=== PATIENT | male | born 1945 | race Caucasian/White ===

== ENCOUNTER 2018-05-07 11:12 | Observation (INO) | payer MEDICARE, OTHER ==
--- NOTE | 2018-05-07 11:33 | ERPHSYRPT ---
- History of Present Illness Time Seen by Provider: 05/07/18 11:31 Source: patient Physician History: mild to mod dizziness today, no loc, no injury, no fever, SP 220, mild headache , no emesis, no chest pain Allergies/Adverse Reactions: No Known Drug Allergies Allergy (Verified 05/07/18 11:26) Home Medications: ARIPiprazole [Aripiprazole] 05/07/18 [History] Alprazolam 1 mg [Xanax 1 mg] 05/07/18 [History] Amlodipine Besylate [Norvasc] 05/07/18 [History] Duloxetine HCl [Cymbalta] 05/07/18 [History] Metoprolol Tartrate 05/07/18 [History] Tamsulosin HCl 0.4 mg [Flomax 0.4 MG] 05/07/18 [History] Hx Tetanus, Diphtheria Vaccination/Date Given: No Hx Influenza Vaccination/Date Given: Yes Hx Pneumococcal Vaccination/Date Given: Yes - Review of Systems Constitutional: No Fever Eyes: No Vision Changes Ears, Nose, & Throat: No Mouth Pain Respiratory: No Dyspnea Cardiac: No Chest Pain Abdominal/Gastrointestinal: No Abdominal Pain, No Vomiting Genitourinary Symptoms: No Dysuria Musculoskeletal: No Back Pain, No Neck Pain, No Fall Skin: No Rash Neurological: Dizziness, No Focal Weakness - Past Medical History Pertinent Past Medical History: Yes Neurological History: No Pertinent History ENT History: No Pertinent History Cardiac History: No Pertinent History, Hypertension Respiratory History: Sleep Apnea Endocrine Medical History: No Pertinent History Musculoskeletal History: Arthritis GI Medical History: Ulcer History: No Pertinent History Psycho-Social History: Anxiety, Depression Male Reproductive Disorders: Prostate Problems - Past Surgical History Past Surgical History: Yes Neuro Surgical History: No Pertinent History Cardiac: Cardiac Catheterization, Other Respiratory: No Pertinent History Gastrointestinal: Hernia Repair Genitourinary: No Pertinent History Musculoskeletal: No Pertinent History Male Surgical History: No Pertinent History Other Surgical History: pt states "my heart beats slow,i have an enlarged upper aorta and thickened septum" - Social History Smoking Status: Never smoker How long have you smoked: 40+ years Exposure to second hand smoke: No Drug Use: none Patient Lives Alone: No - Nursing Vital Signs Nursing Vital Signs: Initial Vital Signs Pulse Rate 59 L 05/07/18 12:43 Respiratory Rate 16 05/07/18 12:43 Blood Pressure 138/89 05/07/18 12:43 O2 Sat by Pulse Oximetry 98 05/07/18 12:43 Pain Scale Pain Intensity 0 - Physical Exam General Appearance: no apparent distress Eye Exam: PERRL/EOMI Ears, Nose, Throat Exam: pharynx normal Neck Exam: normal inspection Respiratory Exam: normal breath sounds Cardiovascular Exam: regular rate/rhythm Gastrointestinal/Abdomen Exam: soft, No tenderness Extremity Exam: normal inspection Neurologic Exam: alert, oriented x 3, case therapist II-XII nml as tested Skin Exam: warm, dry - Course Nursing assessment & vital signs reviewed: Yes EKG Interpreted by Me: Other (nsr 56, new LBBB since 02/2016, +pvc's) - Radiology Exams Chest X-ray Interpretation: Discussed w/ radiologist, Other (left atelec or infil) - CT Exams Head CT Interpretation: Negative, Discussed w/radiologist Ordered Tests: Active Orders 24 hr Category Date Time Status EKG-ER Only STAT Care 05/07/18 11:29 Active IV Insertion STAT Care 05/07/18 11:29 Active Orthostatic Vital Signs STAT Care 05/07/18 12:37 Active CHEST 1 VIEW (PORTABLE) Stat Exams 05/07/18 11:30 Completed HEAD WITHOUT CONTRAST [CT] Stat Exams 05/07/18 11:30 Completed CBC W DIFF Stat Lab 05/07/18 11:52 Completed CMP Stat Lab 05/07/18 11:52 Completed TROPONIN Q3H Lab 05/07/18 11:52 Completed TROPONIN Q3H Lab 05/07/18 14:30 Ordered TROPONIN Q3H Lab 05/07/18 17:30 Ordered TROPONIN Q3H Lab 05/07/18 20:30 Ordered TROPONIN Q3H Lab 05/07/18 23:30 Ordered Transfer Order Routine Transfer 05/07/18 Ordered Medication Summary Generic Name Dose Route Start Last Admin Trade Name Freq PRN Reason Stop Dose Admin Levofloxacin/Dextrose 500 mg in 100 mls @ 100 mls/hr 05/07/18 12:37 Levofloxacin 500mg/100ml D5w IV 05/07/18 13:36 STAT STA Discontinued Medications Generic Name Dose Route Start Last Admin Trade Name Freq PRN Reason Stop Dose Admin Aspirin 324 mg 05/07/18 13:04 Baby Aspirin 81 Mg Chew PO 05/07/18 13:05 STAT ONE Levofloxacin/Dextrose Confirm 05/07/18 12:48 Levofloxacin 500mg/100ml D5w Administered 05/07/18 12:49 Dose 500 mg in 100 mls @ ud IV .STK-MED ONE Lab/Rad Data: Laboratory Result Diagrams 05/07/18 11:52 05/07/18 11:52 Laboratory Results 05/07/18 05/07/18 05/07/18 Range/Units 11:52 11:52 11:52 WBC 7.4 (4.0-10.5) K/mm3 RBC 4.56 (4.1-5.6) M/mm3 Hgb 14.5 (12.5-18.0) gm/dl Hct 43.3 (42-50) % MCV 95.0 (78-100) fl MCH 31.8 (26-32) pg MCHC 33.5 (32-36) g/dl RDW 13.5 (11.5-14.0) % Plt Count 154 (150-450) K/mm3 MPV 10.5 H (6-9.5) fl Gran % 72.2 H (36.0-66.0) % Eos # (Auto) 0.31 (0-0.5) Absolute Lymphs (auto) 1.26 (1.0-4.6) Absolute Monos (auto) 0.44 (0.0-1.3) Lymphocytes % 17.1 L (24.0-44.0) % Monocytes % 6.0 (0.0-12.0) % Eosinophils % 4.2 (0.00-5.0) % Basophils % 0.5 (0.0-0.4) % Absolute Granulocytes 5.34 (1.4-6.9) Basophils # 0.04 (0-0.4) Sodium 140 (137-145) mmol/L Potassium 3.6 (3.5-5.1) mmol/L Chloride 103 (98-107) mmol/L Carbon Dioxide 28 (22-30) mmol/L Anion Gap 12.9 (5-15) MEQ/L BUN 20 (9-20) mg/dL Creatinine 0.96 (0.66-1.25) mg/dL Estimated GFR > 60.0 ML/MIN Glucose 118 H (74-106) mg/dL Calcium 9.1 (8.4-10.2) mg/dL Total Bilirubin 0.50 (0.2-1.3) mg/dL AST 28 (17-59) U/L ALT 20 (0-50) U/L Alkaline Phosphatase 68 (38-126) U/L Troponin I 0.023 (0.000-0.034) ng/mL Serum Total Protein 7.3 (6.3-8.2) g/dL Albumin 4.1 (3.5-5.0) g/dL - Progress Progress: improved Discussed with : Arsenio Will see patient in: hospital (observation) Counseled pt/family regarding: lab results, diagnosis, rad results - Departure Time of Disposition: 13:10 Departure Disposition: Observation Clinical Impression: Pneumonia Qualifiers: Pneumonia type: due to unspecified organism Laterality: left Lung location: lower lobe of lung Qualified Code(s): J18.1 - Lobar pneumonia, unspecified organism Condition: Stable Critical Care Time: No Referrals: CESAR KRAUSE MD [Primary Care Provider] -
[2018-05-07 12:03] LABS: BASOPHIL % 0.5 % (0.0-0.4); Basophil (Absolute #) 0.04 (0-0.4); Eosinophil % 4.2 % (0.00-5.0); Eosinophil (Absolute #) 0.31 (0-0.5); Granulocyte Absolute (ANC) 5.34 (1.4-6.9); Granulocytes % 72.2 % (36.0-66.0); Hematocrit 43.3 % (42-50); Hemoglobin 14.5 gm/dl (12.5-18.0); Lymphocyte (Absolute #) 1.26 (1.0-4.6); Lymphocytes % 17.1 % (24.0-44.0); Mean Corpuscular Hemoglobin 31.8 pg (26-32); Mean Corpuscular Hgb Concent. 33.5 g/dl (32-36); Mean Platelet Volume 10.5 fl (6-9.5); Monocyte (Absolute #) 0.44 (0.0-1.3); Platelet Count 154 K/mm3 (150-450); Red Blood Count 4.56 M/mm3 (4.1-5.6); Red Cell Distribution Width 13.5 % (11.5-14.0); White Blood Count 7.4 K/mm3 (4.0-10.5)
--- NOTE | 2018-05-07 12:05 | XRAY ---
Indication: Dizziness. Comparison: None Portable chest demonstrates left hemidiaphragm elevation with adjacent infiltrate/atelectasis. Remaining right lung and heart unremarkable. Bony thorax intact with sternotomy wires.
[2018-05-07 12:11] LABS: ALBUMIN 4.1 g/dL (3.5-5.0); ALKALINE PHOSPHATASE 68 U/L (38-126); ANION GAP 12.9 MEQ/L (5-15); BLOOD UREA NITROGEN 20 mg/dL (9-20); CHLORIDE 103 mmol/L (98-107); Calcium 9.1 mg/dL (8.4-10.2); Carbon Dioxide 28 mmol/L (22-30); Creatinine 1 0.96 mg/dL (0.66-1.25); Glucose 118 mg/dL (74-106); Potassium 3.6 mmol/L (3.5-5.1); SGOT/AST 28 U/L (17-59); SGPT/ALT 20 U/L (0-50); SODIUM 140 mmol/L (137-145); Total Protein 7.3 g/dL (6.3-8.2)
--- NOTE | 2018-05-07 12:21 | XRAY ---
Indication: Headache and dizziness. Elevated blood pressure. Multiple contiguous axial images obtained through the head without contrast. Comparison: None Age-appropriate global atrophy and minimal periventricular degenerative micro-ischemia bilaterally. No acute intracranial hemorrhage, abnormal extra-axial fluid collection, or mass effect. Fourth ventricle is midline without hydrocephalus. Bony calvarium intact. Moderate mucosal thickening of both ethmoid sinuses, complete opacification of the right frontal sinus, and tiny right maxillary/right sphenoid sinus fluid leveling. Mastoid air cells are clear. Impression: 1. Nonacute senile brain. 2. Incidental pansinusitis. CTDI 68.65
[2018-05-07] MEDS ORDERED: Levofloxacin 500MG/100ML D5W 500 MG/100 ML BAG IV STA (12:37)
[2018-05-07] MEDS ORDERED: Levofloxacin 500MG/100ML D5W 500 MG/100 ML BAG IV ONE (12:48)
[2018-05-07] MEDS ORDERED: BABY ASPIRIN 81 MG CHEW PO ONE (13:04)
[2018-05-07] MEDS ORDERED: BABY ASPIRIN 81 MG CHEW ONE (13:19)
[2018-05-07] MEDS ORDERED: TYLENOL 325 MG PO PRN (13:53)
[2018-05-07] MEDS ORDERED: Sodium Chloride 0.9% 10 ML FLUSH Syringe IV PRN (14:45)
--- NOTE | 2018-05-07 16:48 | PCM.HP ---
History of Present Illness - Chief Complaint Chief Complaint: dizziness History of Present Illness: is a 72 year old male who presented to the ER by ambulance, he was standing in a garage and had sudden onset of dizziness which he describes as a lightheadedness then had a syncopal episode which was witness. He recovered quickly and was coherent and able to answer questions when the ambulance crew arrived. He felt slightly nauseated, no chest pain, no shortness of breath were associated with this incident. He has had aortic valve replacement surgery previously and sees Dr Suarez [facility] in his [facility] satellite clinic. - Review of Systems Constitutional: No Fever, No Chills Respiratory: No Cough, No Short Of Breath Cardiac: Syncope, No Chest Pain, No Palpitations Abdominal/Gastrointestinal: No Abdominal Pain, No Nausea, No Vomiting, No Diarrhea Genitourinary Symptoms: No Dysuria Neurological: Dizziness, No Focal Weakness, No Gait Changes, No Seizure All Other Systems: Reviewed and Negative Medications & Allergies Home Medications: Home Medication List Alprazolam 1 mg [Xanax 1 mg] 1 mg PO TIDPRN PRN 05/07/18 [History Confirmed 05/07/18] Amlodipine Besylate [Norvasc] 5 mg PO DAILY 05/07/18 [History Confirmed 05/07/18 ] Aripiprazole [Abilify] 5 mg PO HS 05/07/18 [History Confirmed 05/07/18] Duloxetine HCl [Cymbalta] 60 mg PO DAILY 05/07/18 [History Confirmed 05/07/18] Metoprolol Tartrate 25 mg PO BID 05/07/18 [History Confirmed 05/07/18] Tamsulosin HCl 0.4 mg [Flomax 0.4 MG] 0.4 mg PO DAILY 05/07/18 [History Confirmed 05/07/18] Valsartan/Hydrochlorothiazide [Valsartan-Hctz 320-12.5 mg Tab] 1 each PO DAILY 05/07/18 [History Confirmed 05/07/18] Allergies/Adverse Reactions: Allergies Allergy/AdvReac Type Severity Reaction Status Date / Time No Known Drug Allergies Allergy Verified 05/07/18 11:26 - Past Medical History Past Medical History: Yes Neurological History: No Pertinent History ENT History: No Pertinent History Cardiac History: Aneurysm, Hypertension, Other Respiratory History: Sleep Apnea Endocrine Medical History: No Pertinent History Musculoskelatal History: Arthritis GI Medical History: Ulcer History: No Pertinent History Pyscho-Social History: Anxiety, Depression Male Reproductive Disorders: Prostate Problems Comment: AVR, MVR, Aortic Anuerysm - Past Surgical History Past Surgical History: Yes Neuro Surgical History: No Pertinent History Cardiac History: Cardiac Catheterization, Valve Replacement, Other Respiratory Surgery: No Pertinent History GI Surgical History: Hernia Repair Genitourinary Surgical Hx: No Pertinent History Musculskeletal Surgical Hx: No Pertinent History Male Surgical History: No Pertinent History Other Surgical History: pt states "my heart beats slow,i have an enlarged upper aorta and thickened septum" - Social History Smoking Status: Never smoker How long have you smoked: 40+ years Exposure to second hand smoke: No Alcohol: Occasionally Drug Use: none - Physical Exam Vital Signs: Vital Signs - 24 hr Temp Pulse Resp BP Pulse Ox 05/07/18 16:00 98.1 F 65 18 146/88 95 05/07/18 14:21 98.2 F 61 18 178/95 99 05/07/18 13:53 98.2 F 61 18 178/95 99 05/07/18 12:50 60 18 153/88 05/07/18 12:43 59 L 16 138/89 98 General Appearance: no apparent distress, alert Neurologic Exam: alert, oriented x 3, cooperative, normal mood/affect, nml cerebellar function, nml station & gait, sensation nml, No motor deficits Eye Exam: PERRL/EOMI, eyes nml inspection Respiratory Exam: normal breath sounds, lungs clear, No respiratory distress Cardiovascular Exam: murmur Gastrointestinal/Abdomen Exam: soft, normal bowel sounds, No tenderness, No mass Extremity Exam: normal inspection, normal range of motion, pelvis stable Skin Exam: normal color, warm, dry, No rash Results - Labs Lab/Micro Results: Lab Results-Last 24 Hours 05/07/18 05/07/18 05/07/18 Range/Units 11:52 11:52 11:52 WBC 7.4 (4.0-10.5) K/mm3 RBC 4.56 (4.1-5.6) M/mm3 Hgb 14.5 (12.5-18.0) gm/dl Hct 43.3 (42-50) % MCV 95.0 (78-100) fl MCH 31.8 (26-32) pg MCHC 33.5 (32-36) g/dl RDW 13.5 (11.5-14.0) % Plt Count 154 (150-450) K/mm3 MPV 10.5 H (6-9.5) fl Gran % 72.2 H (36.0-66.0) % Eos # (Auto) 0.31 (0-0.5) Absolute Lymphs (auto) 1.26 (1.0-4.6) Absolute Monos (auto) 0.44 (0.0-1.3) Lymphocytes % 17.1 L (24.0-44.0) % Monocytes % 6.0 (0.0-12.0) % Eosinophils % 4.2 (0.00-5.0) % Basophils % 0.5 (0.0-0.4) % Absolute Granulocytes 5.34 (1.4-6.9) Basophils # 0.04 (0-0.4) Sodium 140 (137-145) mmol/L Potassium 3.6 (3.5-5.1) mmol/L Chloride 103 (98-107) mmol/L Carbon Dioxide 28 (22-30) mmol/L Anion Gap 12.9 (5-15) MEQ/L BUN 20 (9-20) mg/dL Creatinine 0.96 (0.66-1.25) mg/dL Estimated GFR > 60.0 ML/MIN Glucose 118 H (74-106) mg/dL Calcium 9.1 (8.4-10.2) mg/dL Total Bilirubin 0.50 (0.2-1.3) mg/dL AST 28 (17-59) U/L ALT 20 (0-50) U/L Alkaline Phosphatase 68 (38-126) U/L Troponin I 0.023 (0.000-0.034) ng/mL Serum Total Protein 7.3 (6.3-8.2) g/dL Albumin 4.1 (3.5-5.0) g/dL 05/07/18 Range/Units 14:46 WBC (4.0-10.5) K/mm3 RBC (4.1-5.6) M/mm3 Hgb (12.5-18.0) gm/dl Hct (42-50) % MCV (78-100) fl MCH (26-32) pg MCHC (32-36) g/dl RDW (11.5-14.0) % Plt Count (150-450) K/mm3 MPV (6-9.5) fl Gran % (36.0-66.0) % Eos # (Auto) (0-0.5) Absolute Lymphs (auto) (1.0-4.6) Absolute Monos (auto) (0.0-1.3) Lymphocytes % (24.0-44.0) % Monocytes % (0.0-12.0) % Eosinophils % (0.00-5.0) % Basophils % (0.0-0.4) % Absolute Granulocytes (1.4-6.9) Basophils # (0-0.4) Sodium (137-145) mmol/L Potassium (3.5-5.1) mmol/L Chloride (98-107) mmol/L Carbon Dioxide (22-30) mmol/L Anion Gap (5-15) MEQ/L BUN (9-20) mg/dL Creatinine (0.66-1.25) mg/dL Estimated GFR ML/MIN Glucose (74-106) mg/dL Calcium (8.4-10.2) mg/dL Total Bilirubin (0.2-1.3) mg/dL AST (17-59) U/L ALT (0-50) U/L Alkaline Phosphatase (38-126) U/L Troponin I 0.030 (0.000-0.034) ng/mL Serum Total Protein (6.3-8.2) g/dL Albumin (3.5-5.0) g/dL - Radiology Impressions Radiology Exams & Impressions: Radiology Procedures Category Date Time Status CHEST 1 VIEW (PORTABLE) Stat Exams 05/07/18 11:30 Completed HEAD WITHOUT CONTRAST [CT] Stat Exams 05/07/18 11:30 Completed Assessment/Plan (1) Syncope Current Visit: Yes Status: Acute Assessment & Plan: will get echo and carotid dopplers, continue to rule out ME with serial cardiac enzymes. EKG shows left bundle branch block with frequent PVC's, want to rule out arrythmia Code(s): R55 - SYNCOPE AND COLLAPSE
[2018-05-07] MEDS: ENOXAPARIN SODIUM SQ SCH (17:44)
[2018-05-07] MEDS: Lopressor 25MG Tab PO SCH (21:06)
[2018-05-07] MEDS: Abilify 10 MG PO SCH (21:06)
[2018-05-07] MEDS: Sodium Chloride 0.9% 10 ML FLUSH Syringe IV SCH (21:08)
[2018-05-07] MEDS: XANAX 1 MG PO PRN (21:11)
[2018-05-07] MEDS ORDERED: NON-FORMULARY ITEM (Aripiprazole [Abilify] 5 MG) PO SCH (22:00)
[2018-05-08 05:44] LABS: BASOPHIL % 0.5 % (0.0-0.4); Basophil (Absolute #) 0.04 (0-0.4); Eosinophil % 4.3 % (0.00-5.0); Eosinophil (Absolute #) 0.33 (0-0.5); Granulocyte Absolute (ANC) 5.04 (1.4-6.9); Granulocytes % 66.2 % (36.0-66.0); Hemoglobin 13.9 gm/dl (12.5-18.0); Lymphocyte (Absolute #) 1.66 (1.0-4.6); Lymphocytes % 21.8 % (24.0-44.0); Mean Cell Volume 94.8 fl (78-100); Mean Corpuscular Hemoglobin 31.4 pg (26-32); Mean Corpuscular Hgb Concent. 33.1 g/dl (32-36); Mean Platelet Volume 10.5 fl (6-9.5); Monocyte (Absolute #) 0.55 (0.0-1.3); Monocytes % 7.2 % (0.0-12.0); Platelet Count 161 K/mm3 (150-450); Red Blood Count 4.43 M/mm3 (4.1-5.6); Red Cell Distribution Width 13.5 % (11.5-14.0); White Blood Count 7.6 K/mm3 (4.0-10.5)
[2018-05-08 06:09] LABS: ALBUMIN 3.6 g/dL (3.5-5.0); ALKALINE PHOSPHATASE 58 U/L (38-126); ANION GAP 11.2 MEQ/L (5-15); BLOOD UREA NITROGEN 19 mg/dL (9-20); CHLORIDE 105 mmol/L (98-107); Calcium 8.8 mg/dL (8.4-10.2); Carbon Dioxide 27 mmol/L (22-30); Creatinine 1 0.98 mg/dL (0.66-1.25); Glucose 94 mg/dL (74-106); Potassium 3.5 mmol/L (3.5-5.1); SGOT/AST 30 U/L (17-59); SGPT/ALT 18 U/L (0-50); SODIUM 139 mmol/L (137-145); Total Protein 6.6 g/dL (6.3-8.2)
--- NOTE | 2018-05-08 08:44 | PCM.DS ---
Discharge Summary Date of Admission: 05/07/18 13:48 Admitting Physician: CESAR KRAUSE Primary Care Provider: CESAR KRAUSE Allergies Allergies No Known Drug Allergies Allergy (Verified 05/07/18 11:26) Hospital Summary - Hospital Course Hospital Course: [address] Krause and Dr. Suarez with PMHx aortic valve replacement and mitral valve repair was admitted for syncopal episode. EKG with some changes felt to be related to the recent valve replacement. He was found to have some LLL infiltrate but denies cough, aside from once every other day. No fever. He feels "100% better" since being here. Out of bed without incident. Slept well last night. Currently getting echocardiogram and carotid dopplers. Will let him finish testing. Will increase amlodipine from 5mg po daily to 10mg daily due to elevated BPs. Labs are unremarkable today. On admission, he had 3 negative troponins, than #4 and #5 were slightly elevated. Will repeat EKG and CXR and discuss with his sales development director then likely will send pt home. - Vitals & Intake/Output Vital Signs: Vital Signs Temperature 97.6 F 05/08/18 08:00 Pulse Rate 51 L 05/08/18 08:00 Respiratory Rate 20 05/08/18 08:00 Blood Pressure 159/85 05/08/18 08:00 O2 Sat by Pulse Oximetry 96 05/08/18 08:00 Intake & Output: Intake & Output 05/05/18 05/06/18 05/07/18 05/08/18 11:59 11:59 11:59 11:59 Intake Total 380 Output Total 800 Balance -420 Weight 90.718 kg 102.1 kg - Lab Result Diagrams: 05/08/18 05:20 05/08/18 05:20 Lab Results-Last 24 Hrs: Lab Results-Last 24 Hours 05/07/18 05/07/18 05/07/18 Range/Units 11:52 11:52 11:52 WBC 7.4 (4.0-10.5) K/mm3 RBC 4.56 (4.1-5.6) M/mm3 Hgb 14.5 (12.5-18.0) gm/dl Hct 43.3 (42-50) % MCV 95.0 (78-100) fl MCH 31.8 (26-32) pg MCHC 33.5 (32-36) g/dl RDW 13.5 (11.5-14.0) % Plt Count 154 (150-450) K/mm3 MPV 10.5 H (6-9.5) fl Gran % 72.2 H (36.0-66.0) % Eos # (Auto) 0.31 (0-0.5) Absolute Lymphs (auto) 1.26 (1.0-4.6) Absolute Monos (auto) 0.44 (0.0-1.3) Lymphocytes % 17.1 L (24.0-44.0) % Monocytes % 6.0 (0.0-12.0) % Eosinophils % 4.2 (0.00-5.0) % Basophils % 0.5 (0.0-0.4) % Absolute Granulocytes 5.34 (1.4-6.9) Basophils # 0.04 (0-0.4) Sodium 140 (137-145) mmol/L Potassium 3.6 (3.5-5.1) mmol/L Chloride 103 (98-107) mmol/L Carbon Dioxide 28 (22-30) mmol/L Anion Gap 12.9 (5-15) MEQ/L BUN 20 (9-20) mg/dL Creatinine 0.96 (0.66-1.25) mg/dL Estimated GFR > 60.0 ML/MIN Glucose 118 H (74-106) mg/dL Calcium 9.1 (8.4-10.2) mg/dL Magnesium (1.6-2.3) mg/dL Total Bilirubin 0.50 (0.2-1.3) mg/dL AST 28 (17-59) U/L ALT 20 (0-50) U/L Alkaline Phosphatase 68 (38-126) U/L Troponin I 0.023 (0.000-0.034) ng/mL Serum Total Protein 7.3 (6.3-8.2) g/dL Albumin 4.1 (3.5-5.0) g/dL 05/07/18 05/07/18 05/07/18 Range/Units 14:46 17:42 20:40 WBC (4.0-10.5) K/mm3 RBC (4.1-5.6) M/mm3 Hgb (12.5-18.0) gm/dl Hct (42-50) % MCV (78-100) fl MCH (26-32) pg MCHC (32-36) g/dl RDW (11.5-14.0) % Plt Count (150-450) K/mm3 MPV (6-9.5) fl Gran % (36.0-66.0) % Eos # (Auto) (0-0.5) Absolute Lymphs (auto) (1.0-4.6) Absolute Monos (auto) (0.0-1.3) Lymphocytes % (24.0-44.0) % Monocytes % (0.0-12.0) % Eosinophils % (0.00-5.0) % Basophils % (0.0-0.4) % Absolute Granulocytes (1.4-6.9) Basophils # (0-0.4) Sodium (137-145) mmol/L Potassium (3.5-5.1) mmol/L Chloride (98-107) mmol/L Carbon Dioxide (22-30) mmol/L Anion Gap (5-15) MEQ/L BUN (9-20) mg/dL Creatinine (0.66-1.25) mg/dL Estimated GFR ML/MIN Glucose (74-106) mg/dL Calcium (8.4-10.2) mg/dL Magnesium (1.6-2.3) mg/dL Total Bilirubin (0.2-1.3) mg/dL AST (17-59) U/L ALT (0-50) U/L Alkaline Phosphatase (38-126) U/L Troponin I 0.030 0.032 0.048 H* (0.000-0.034) ng/mL Serum Total Protein (6.3-8.2) g/dL Albumin (3.5-5.0) g/dL 05/07/18 05/08/18 05/08/18 Range/Units 23:30 05:20 05:20 WBC 7.6 (4.0-10.5) K/mm3 RBC 4.43 (4.1-5.6) M/mm3 Hgb 13.9 (12.5-18.0) gm/dl Hct 42.0 (42-50) % MCV 94.8 (78-100) fl MCH 31.4 (26-32) pg MCHC 33.1 (32-36) g/dl RDW 13.5 (11.5-14.0) % Plt Count 161 (150-450) K/mm3 MPV 10.5 H (6-9.5) fl Gran % 66.2 H (36.0-66.0) % Eos # (Auto) 0.33 (0-0.5) Absolute Lymphs (auto) 1.66 (1.0-4.6) Absolute Monos (auto) 0.55 (0.0-1.3) Lymphocytes % 21.8 L (24.0-44.0) % Monocytes % 7.2 (0.0-12.0) % Eosinophils % 4.3 (0.00-5.0) % Basophils % 0.5 (0.0-0.4) % Absolute Granulocytes 5.04 (1.4-6.9) Basophils # 0.04 (0-0.4) Sodium 139 (137-145) mmol/L Potassium 3.5 (3.5-5.1) mmol/L Chloride 105 (98-107) mmol/L Carbon Dioxide 27 (22-30) mmol/L Anion Gap 11.2 (5-15) MEQ/L BUN 19 (9-20) mg/dL Creatinine 0.98 (0.66-1.25) mg/dL Estimated GFR > 60.0 ML/MIN Glucose 94 (74-106) mg/dL Calcium 8.8 (8.4-10.2) mg/dL Magnesium 2.1 (1.6-2.3) mg/dL Total Bilirubin 0.60 (0.2-1.3) mg/dL AST 30 (17-59) U/L ALT 18 (0-50) U/L Alkaline Phosphatase 58 (38-126) U/L Troponin I 0.076 H* (0.000-0.034) ng/mL Serum Total Protein 6.6 (6.3-8.2) g/dL Albumin 3.6 (3.5-5.0) g/dL - Radiology Exams Ordered Rad Exams-Entire Visit: Radiology Procedures Category Date Time Status CAROTID BILATERAL [US] Routine Exams 05/08/18 Ordered CHEST 1 VIEW (PORTABLE) Stat Exams 08/27/18 11:30 Completed ECHO W/2D AND DOPPLER [US] Routine Exams 05/08/18 Ordered HEAD WITHOUT CONTRAST [CT] Stat Exams 05/07/18 11:30 Completed - Procedures and Test Procedures and Tests throughout Hospitalization: Therapy Orders & Screens 05/08/18 08:38 EKG ROUTINE Comment: Diagnosis: dizziness Discharge Exam General Appearance: no apparent distress, alert Neurologic Exam: oriented x 3, cooperative Skin Exam: normal color, warm, dry, No rash Eye Exam: eyes nml inspection Ears, Nose, Throat Exam: moist mucous membranes Neck Exam: normal inspection Respiratory Exam: normal breath sounds (good air exchange), crackles/rales (LLL) , No rhonchi, No wheezing Cardiovascular Exam: bradycardia (reg rhythm), No murmur Gastrointestinal/Abdomen Exam: normal bowel sounds Extremity Exam: No pedal edema, No swelling Back Exam: normal inspection, No rash Final Diagnosis/Problem List - Final Discharge Diagnosis/Problem (1) Syncope Current Visit: Yes Status: Acute (2) Pneumonia Current Visit: Yes Status: Acute Assessment & Plan: He has infiltrate on CXR and can hear fluid in the lungs but clinically has no WBC count and no sx of pneumonia. Will go ahead and cover with antibiotics. Repeat CXR. (3) H/O mitral valve repair Current Visit: Yes Status: Chronic (4) Aortic valve replaced Current Visit: Yes Status: Chronic (5) Essential hypertension Current Visit: No Status: Chronic Assessment & Plan: increase amlodipine from 5mg po daily to 10mg po daily. - Discharge Disposition: Home, Self-Care Condition: Stable Prescriptions: No Action Tamsulosin HCl 0.4 mg [Flomax 0.4 MG] 0.4 mg PO DAILY Metoprolol Tartrate 25 mg PO BID Duloxetine HCl [Cymbalta] 60 mg PO DAILY Amlodipine Besylate [Norvasc] 5 mg PO DAILY Alprazolam 1 mg [Xanax 1 mg] 1 mg PO TIDPRN PRN PRN Reason: Anxiety Aripiprazole [Abilify] 5 mg PO HS Valsartan/Hydrochlorothiazide [Valsartan-Hctz 320-12.5 mg Tab] 1 each PO DAILY Follow up with: CESAR KRAUSE MD [Primary Care Provider] - 1 Week
[2018-05-08] MEDS: Lopressor 25MG Tab PO SCH ×2 (09:51→22:08)
[2018-05-08] MEDS ORDERED: NORVASC 5 MG PO SCH ×2 (10:00)
[2018-05-08] MEDS ORDERED: HYDROCHLOROTHIAZIDE PO SCH ×2 (10:00)
[2018-05-08] MEDS ORDERED: DIOVAN 80 MG PO SCH (10:00)
[2018-05-08] MEDS ORDERED: Levofloxacin 500MG/100ML D5W 500 MG/100 ML BAG IV SCH (10:00)
[2018-05-08] MEDS ORDERED: hydroDIURIL 25 MG PO SCH (10:00)
[2018-05-08] MEDS ORDERED: [UNRECOGNIZED DRUG - OTHER] PO SCH ×2 (10:00)
[2018-05-08] MEDS ORDERED: VALSARTAN PO SCH ×2 (10:00)
[2018-05-08] MEDS ORDERED: Flomax 0.4 MG PO SCH (10:00)
[2018-05-08] MEDS ORDERED: Cymbalta 30 MG Capsule PO SCH (10:00)
--- NOTE | 2018-05-08 10:34 | XRAY ---
Indication: Pneumonia. Comparison: One day earlier. PA/lateral chest unchanged again demonstrating left hemidiaphragm elevation with adjacent infiltrate/atelectasis and previous cardiothoracic surgery. Remaining heart and lungs unremarkable. No new/acute findings.
--- NOTE | 2018-05-08 10:40 | XRAY ---
Indication: Syncope. Two-dimensional sonogram and color Doppler imaging of the carotid arteries of the neck performed. Comparison: None Examination of the right carotid circulation demonstrates mild eccentric heterogeneous plaquing at the level of bulb extending into the origin of the internal carotid artery. Tortuous internal carotid artery. PSV of the CCA is 96 cm/s. PSV of the ICA is 88 cm/s. ICA/CCA ratio is 0.9. Normal antegrade vertebral artery flow. Examination of the left carotid circulation demonstrates wide patent common carotid artery, bulb, and internal/external carotid arteries. Tortuous internal carotid artery. PSV of the CCA is 95 cm/s. PSV of the ICA is 57 cm/s. ICA/CCA ratio is 0.6. Normal antegrade vertebral artery flow. Impression: Mild plaquing in the right carotid circulation as detailed and bilateral tortuous internal carotid arteries. Velocity measurements and ratios are negative for hemodynamically significant flow-limiting stenosis.
[2018-05-08] MEDS: ENOXAPARIN SODIUM SQ SCH (19:00)
[2018-05-08] MEDS: Sodium Chloride 0.9% 10 ML FLUSH Syringe IV SCH (20:38)
[2018-05-08] MEDS ORDERED: Sodium Chloride 0.9% 1000 ML 1,000 ML IV SCH (20:45)
[2018-05-08] MEDS: Abilify 10 MG PO SCH (22:08)
[2018-05-08] MEDS: XANAX 1 MG PO PRN (22:10)
[2018-05-09 07:13] VITALS: BP 169/98; PULSE 60; O2SAT 95
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
--- NOTE | 2018-05-09 08:59 | XRAY ---
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 Conventional CTA chest performed using 80 cc Isovue 370 contrast. Two-dimensional sagittal and coronal reformatted images obtained. Additional 3-dimensional reformatted images obtained using a separate workstation. Comparison: CT chest with contrast exam August 02, 2010. Thoracic aorta is normal in course and caliber without aneurysm/dissection. There has been interval mitral valve replacement surgery. Heart is not enlarged. No pericardial effusion/thickening. Again tiny right hilar calcified nodes. No pathologic mediastinal/hilar/axillary lymphadenopathy. There is now left hemidiaphragm elevation with adjacent left lower lobe compressive atelectasis. Stable tiny peripheral calcified granuloma in the right middle lobe and new tiny calcific granulomas in the left posterior gutter. New 5 mm noncalcified nodularity seen in the right lower lobe (image 36, series 4). No infiltrate or effusion. Bony thorax intact with mild degenerative changes throughout the spine and new sternotomy wires. Limited upper abdomen again demonstrates small hepatic and bilateral renal cysts. Left upper renal pole demonstrates new 2 cm exophytic mass, not simple cyst in appearance. Impression: 1. Negative CTA chest. 2. Interval mitral valve replacement surgery. No Complications. 3. New left hemidiaphragm elevation with adjacent atelectasis. 4. New right lower lobe noncalcified micronodule possibly granulomatous as there is evidence for old granulomatous disease elsewhere. Consider follow-up per Fleischner guidelines. 5. New 2 cm left upper renal pole exophytic mass. Renal sonogram could help differentiate solid mass versus complex proteinaceous/viscus cyst. CT DI 23.68
--- NOTE | 2018-05-10 08:40 | ECHO ---
DATE OF PROCEDURE: 05/08/2018 CLINICAL INFORMATION: Syncope. The M-mode 2D, and Doppler echocardiogram including color flow Doppler shows a mild decrease in left ventricular contractibility with an ejection fraction between 45 and 50%. There is mitral valve calcification associated with mild mitral regurgitation present. The left ventricle is moderately dilated at 6.6 cm. There is no apical thrombus present. The septal wall thickness is at 1.3 cm. The left ventricular posterior wall thickness is increased at 1.4 cm. The mitral valve E to A inflow velocity ratio is decreased at 0.9 consistent with impaired left ventricular relaxation. The right ventricle is grossly normal in size and function. The left atrium is at the upper limits of normal being 4.0 cm. The interatrial septum is normal. The right atrium is normal. The right atrium is normal. There is mitral valvular calcification associated with mild mitral regurgitation. The aortic valve is not well visualized. There is mild tricuspid regurgitation. The right ventricular systolic pressure is at the upper limits of normal being 29 mm of Mercury. The pulmonic valve is not well visualized. The aortic root is dilated 4.3 cm. There is no pericardial effusion present. IMPRESSION: 1) MILD MITRAL REGURGITATION. 2) MILD TRICUSPID REGURGITATION. 3) MILD PULMONIC REGURGITATION. 4) MILD DECREASE IN LEFT VENTRICULAR SYSTOLIC FUNCTION. 5) THERE IS EVIDENCE OF IMPAIRED LEFT VENTRICULAR RELAXATION. 6) THE LEFT VENTRICLE IS MODERATELY DILATED. 7) THERE IS MILD CONCENTRIC LEFT VENTRICULAR HYPERTROPHY.
== END 2018-05-09 09:10 | disposition home or self-care (01) ==
LOC: ED 11:12 → MED SURG 13:48
PROVIDERS: ADMIT Family Medicine; ATTEND Family Medicine
DX: R55 Syncope and collapse (principal); J18.9 Pneumonia, unspecified organism; I10 Essential (primary) hypertension; Z95.2 Presence of prosthetic heart valve; Z98.890 Other specified postprocedural states; G47.33 Obstructive sleep apnea (adult) (pediatric); M19.90 Unspecified osteoarthritis, unspecified site; F41.8 Other specified anxiety disorders; Z79.899 Other long term (current) drug therapy
CPT/HCPCS: 36000; 36415; 70450; 71045; 71046; 71275; 80053; 83735; 84484; 85025; 93005; 93268; 93306; 93880; 96365; 99285; J1650; J1956; A9270-GY; G0378

== ENCOUNTER 2018-10-05 17:14 | Emergency (ER) | payer MEDICARE, OTHER ==
[2018-10-05] MEDS ORDERED: SUBLIMAZE 100 MCG/2 ML IV ONE ×2 (17:21→18:54)
[2018-10-05] MEDS ORDERED: SUBLIMAZE 100 MCG/2 ML ONE ×2 (17:24→18:59)
[2018-10-05] MEDS ORDERED: Zofran 4 MG/2 ML VIAL ONE (17:24)
[2018-10-05] MEDS ORDERED: Sodium Chloride 0.9% 1000 ML 1,000 ML IV SCH (17:30)
[2018-10-05 17:40] LABS: BASOPHIL % 0.2 % (0.0-0.4); Basophil (Absolute #) 0.02 (0-0.4); Eosinophil (Absolute #) 0.34 (0-0.5); Granulocyte Absolute (ANC) 5.32 (1.4-6.9); Hematocrit 41.9 % (42-50); Hemoglobin 13.9 gm/dl (12.5-18.0); Lymphocyte (Absolute #) 2.28 (1.0-4.6); Lymphocytes % 26.5 % (24.0-44.0); Mean Corpuscular Hemoglobin 32.2 pg (26-32); Mean Corpuscular Hgb Concent. 33.2 g/dl (32-36); Monocyte (Absolute #) 0.63 (0.0-1.3); Monocytes % 7.3 % (0.0-12.0); Platelet Count 154 K/mm3 (150-450); Red Blood Count 4.32 M/mm3 (4.1-5.6); Red Cell Distribution Width 12.9 % (11.5-14.0); White Blood Count 8.6 K/mm3 (4.0-10.5)
[2018-10-05] MEDS ORDERED: Zofran 4 MG/2 ML VIAL IV ONE (17:41)
[2018-10-05 17:43] LABS: INR 1.01 (0.8-3.0); PROTIME 11.8 SECONDS (8.83-12.87)
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
[2018-10-05 17:48] LABS: ALBUMIN 4.4 g/dL (3.5-5.0); ALKALINE PHOSPHATASE 77 U/L (38-126); ANION GAP 12.7 MEQ/L (5-15); BLOOD UREA NITROGEN 26 mg/dL (9-20); CHLORIDE 102 mmol/L (98-107); Calcium 9.7 mg/dL (8.4-10.2); Carbon Dioxide 28 mmol/L (22-30); Creatinine 1 1.18 mg/dL (0.66-1.25); Glucose 95 mg/dL (74-106); MAGNESIUM 2.2 mg/dL (1.6-2.3); Potassium 3.5 mmol/L (3.5-5.1); SGOT/AST 32 U/L (17-59); SGPT/ALT 24 U/L (0-50); SODIUM 140 mmol/L (137-145); Total Protein 7.9 g/dL (6.3-8.2)
[2018-10-05] MEDS ORDERED: DUONEB 0.5-3 MG/3 ml Neb IH ONE ×2 (19:32→19:33)
[2018-10-05] MEDS ORDERED: Levofloxacin 500MG/100ML D5W 500 MG/100 ML BAG IV STA (19:32)
[2018-10-05] MEDS ORDERED: Levofloxacin 500MG/100ML D5W 500 MG/100 ML BAG IV ONE (19:36)
[2018-10-05] MEDS ORDERED: Sodium Chloride 0.9% 1000 ML 1,000 ML ONE (19:41)
[2018-10-05 20:04] VITALS: BP 138/83; PULSE 70; O2SAT 97
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
== END 2018-10-05 20:25 | disposition short-term general hospital (02) ==
LOC: ED 17:14
DX: S27.321A Contusion of lung, unilateral, initial encounter (principal); V47.0XXA Car driver injured in collision with fixed or stationary object in nontraffic accident, initial encounter; Z95.0 Presence of cardiac pacemaker; I10 Essential (primary) hypertension; I44.1 Atrioventricular block, second degree; I49.5 Sick sinus syndrome; I35.0 Nonrheumatic aortic (valve) stenosis; G47.30 Sleep apnea, unspecified; M19.90 Unspecified osteoarthritis, unspecified site; F32.9 Major depressive disorder, single episode, unspecified; R07.89 Other chest pain; Z79.899 Other long term (current) drug therapy
CPT/HCPCS: 70450; 71260; 72125; 80053; 83735; 83880; 84484; 85025; 85610; 87040; 93005; 93041; 94150; 94640; 96360; 96361; 96374; 96375; 96376; 99291; Q9967; 36415; 99285; J1956; J2405; J3010; A9270-GY

== ENCOUNTER 2019-06-03 12:25 | Emergency (ER) | payer MEDICARE, OTHER ==
--- NOTE | 2019-06-03 12:39 | ERPHSYRPT ---
- History of Present Illness Time Seen by Provider: 06/03/19 12:39 Source: patient Exam Limitations: no limitations Time of Onset/Last Time Seen Normal: Confusion, slurred speech for about 90 minutes Timing/Duration: resolved prior to arrival Severity: moderate Character of Deficits: impaired speech Deficits: no difficulties Baseline/Normal Cognition: alert oriented x 3 Current Cognition: alert oriented x 3 Baseline Gait: walks w/o assistance Associated Symptoms: denies symptoms (back to normal, all symptoms resolved) Allergies/Adverse Reactions: No Known Drug Allergies Allergy (Verified 06/03/19 12:49) Home Medications: Alprazolam 1 mg [Xanax 1 mg] 1 mg PO TIDPRN PRN 05/07/18 [History] Duloxetine HCl [Cymbalta] 60 mg PO DAILY 05/07/18 [History] Tamsulosin HCl 0.4 mg [Flomax 0.4 MG] 0.4 mg PO DAILY 05/07/18 [History] Valsartan/Hydrochlorothiazide [Valsartan-Hctz 320-12.5 mg Tab] 1 each PO DAILY 05/07/18 [History] Buspirone HCl 7.5 mg TID 06/03/19 [History] Dicyclomine HCl 20 mg [Bentyl 20 mg] 20 mg DAILY 06/03/19 [History] Omeprazole 40 mg DAILY 06/03/19 [History] Hx Tetanus, Diphtheria Vaccination/Date Given: No Hx Influenza Vaccination/Date Given: Yes Hx Pneumococcal Vaccination/Date Given: Yes - Review of Systems Constitutional: No Symptoms, No Fever, No Chills Eyes: No Symptoms Ears, Nose, & Throat: No Symptoms Respiratory: No Symptoms, No Cough, No Dyspnea Cardiac: No Symptoms, No Chest Pain, No Edema, No Syncope Abdominal/Gastrointestinal: No Symptoms, No Abdominal Pain, No Nausea, No Vomiting, No Diarrhea Genitourinary Symptoms: No Symptoms, No Dysuria Musculoskeletal: No Symptoms, No Back Pain, No Neck Pain Skin: No Symptoms, No Rash Neurological: Focal Weakness (not weak, but confused and slurred speech earlier) , Headache (mild), No Dizziness, No Sensory Changes Psychological: No Symptoms Endocrine: No Symptoms All Other Systems: Reviewed and Negative - Past Medical History Pertinent Past Medical History: Yes Neurological History: No Pertinent History, Other (possible brief TIA a few weeks ago, did not seek medical attention) ENT History: No Pertinent History Cardiac History: Aneurysm, Hypertension, Other (porcine AVR and mitral valve "repair" [address] - [facility]) Respiratory History: Sleep Apnea Endocrine Medical History: No Pertinent History Musculoskeletal History: Arthritis GI Medical History: Ulcer History: No Pertinent History Psycho-Social History: Anxiety, Depression Male Reproductive Disorders: Prostate Problems Other Medical History: AVR, MVR, Aortic Anuerysm - Past Surgical History Past Surgical History: Yes Neuro Surgical History: No Pertinent History Cardiac: Cardiac Catheterization, Valve Replacement, Other Respiratory: No Pertinent History Gastrointestinal: Hernia Repair Genitourinary: No Pertinent History Musculoskeletal: No Pertinent History Male Surgical History: No Pertinent History Other Surgical History: pt states "my heart beats slow,i have an enlarged upper aorta and thickened septum" - Social History Smoking Status: Former smoker How long have you smoked: 40+ years Exposure to second hand smoke: No Drug Use: none Patient Lives Alone: No - Nursing Vital Signs Nursing Vital Signs: Initial Vital Signs Temperature 98.4 F 06/03/19 12:37 Pulse Rate 71 06/03/19 12:37 Blood Pressure 123/89 06/03/19 12:37 O2 Sat by Pulse Oximetry 100 06/03/19 12:37 Pain Scale Pain Intensity 3 - Hope Coma Scale Best Eye Response (Hope): (4) open spontaneously Best Verbal Response (Hope): (5) oriented Best Motor Response (Cheo): (6) obeys commands Cheo Total: 15 - Physical Exam General Appearance: no apparent distress Eye Exam: bilateral eye: normal inspection, PERRL, EOMI Ears, Nose, Throat Exam: normal ENT inspection Neck Exam: normal inspection, non-tender, supple, full range of motion Respiratory: normal breath sounds, lungs clear, airway intact Cardiovascular: regular rate/rhythm, normal heart sounds Gastrointestinal: soft Rectal Exam: deferred Back Exam: normal inspection Extremity Exam: normal inspection, normal range of motion Mental Status: alert, oriented 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, 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 Exam: normal hearing, normal speech, PERRL Coordination/Gait: normal finger to nose, normal gait, normal cerebellar function, negative Romberg's sign Motor/Sensory: no motor deficit, no sensory deficit Skin Exam: normal color, warm, dry - Course Nursing assessment & vital signs reviewed: Yes EKG Interpreted by Me: RATE, Sinus Rhythm, NORMAL AXIS, NORMAL INTERVALS, NORMAL QRS, Non-specific ST Changes - CT Exams Head CT Interpretation: Tele-radiologist Report - Radiology Ultrasound Exam Carotid Ultrasound: discussed w/radiologist, Other (essentially normal for age) Ordered Tests: Active Orders 24 hr Category Date Time Status NPO (ED) STAT Care 06/03/19 13:04 Active CAROTID BILATERAL [US] Stat Exams 06/03/19 13:41 Completed HEAD WITHOUT CONTRAST [CT] Stat Exams 06/03/19 13:04 Completed CBC W DIFF Stat Lab 06/03/19 13:00 Completed CMP Stat Lab 06/03/19 13:00 Completed PROTIME WITH INR Stat Lab 06/03/19 13:00 Completed PTT Stat Lab 06/03/19 13:00 Completed UA W/RFX UR CULTURE Stat Lab 06/03/19 13:26 Completed Medication Summary Discontinued Medications Generic Name Dose Route Start Last Admin Trade Name Freq PRN Reason Stop Dose Admin Potassium Chloride 20 meq 06/03/19 14:34 06/03/19 14:46 Klor Con 10 Meq PO 06/03/19 14:35 20 meq STAT ONE Administration Potassium Chloride Confirm 06/03/19 14:45 Klor Con 10 Meq Administered 06/03/19 14:46 Dose 20 meq PO .STK-MED ONE Head CT normal for age. Sinus fluid likely from seasonal allergies. Carotid dopplers essentially normal for age. Lab/Rad Data: Laboratory Result Diagrams 06/03/19 13:00 06/03/19 13:00 Laboratory Results 06/03/19 06/03/19 06/03/19 Range/Units 13:26 13:00 13:00 WBC (4.0-10.5) K/mm3 RBC (4.1-5.6) M/mm3 Hgb (12.5-18.0) gm/dl Hct (42-50) % MCV (78-100) fl MCH (26-32) pg MCHC (32-36) g/dl RDW (11.5-14.0) % Plt Count (150-450) K/mm3 MPV (6-9.5) fl Gran % (36.0-66.0) % Eos # (Auto) (0-0.5) Absolute Lymphs (auto) (1.0-4.6) Absolute Monos (auto) (0.0-1.3) Lymphocytes % (24.0-44.0) % Monocytes % (0.0-12.0) % Eosinophils % (0.00-5.0) % Basophils % (0.0-0.4) % Absolute Granulocytes (1.4-6.9) Basophils # (0-0.4) PT 12.7 (8.83-12.87) SECONDS INR 1.12 (0.8-3.0) APTT 31.8 (24.1-36.1) SECONDS Sodium 141 (137-145) mmol/L Potassium 3.3 L (3.5-5.1) mmol/L Chloride 105 (98-107) mmol/L Carbon Dioxide 22 (22-30) mmol/L Anion Gap 17.5 H (5-15) MEQ/L BUN 25 H (9-20) mg/dL Creatinine 1.29 H (0.66-1.25) mg/dL Estimated GFR 58.2 ML/MIN Glucose 95 (74-106) mg/dL Calcium 10.4 H (8.4-10.2) mg/dL Total Bilirubin 0.90 (0.2-1.3) mg/dL AST 33 (17-59) U/L ALT 23 (0-50) U/L Alkaline Phosphatase 68 (38-126) U/L Serum Total Protein 7.9 (6.3-8.2) g/dL Albumin 4.5 (3.5-5.0) g/dL Urine Color YELLOW (YELLOW) Urine Appearance CLEAR (CLEAR) Urine pH 6.0 (5-6) Ur Specific Hamler 1.011 (1.005-1.025) Urine Protein NEGATIVE (Negative) Urine Ketones NEGATIVE (NEGATIVE) Urine Blood NEGATIVE (0-5) Macario/ul Urine Nitrite NEGATIVE (NEGATIVE) Urine Bilirubin NEGATIVE (NEGATIVE) Urine Urobilinogen NEGATIVE (0-1) mg/dL Ur Leukocyte Esterase NEGATIVE (NEGATIVE) Urine WBC (Auto) NONE (0-5) /HPF Urine RBC (Auto) NONE (0-2) /HPF U Epithel Cells (Auto) NONE (FEW) /HPF Urine Bacteria (Auto) NONE (NEGATIVE) /HPF Urine Mucus (Auto) SLIGHT (NEGATIVE) /HPF Urine Culture Reflexed NO (NO) Urine Glucose NEGATIVE (NEGATIVE) mg/dL 06/03/19 Range/Units 13:00 WBC 9.4 (4.0-10.5) K/mm3 RBC 4.37 (4.1-5.6) M/mm3 Hgb 14.2 (12.5-18.0) gm/dl Hct 41.6 L (42-50) % MCV 95.2 (78-100) fl MCH 32.5 H (26-32) pg MCHC 34.1 (32-36) g/dl RDW 13.5 (11.5-14.0) % Plt Count 184 (150-450) K/mm3 MPV 10.5 H (6-9.5) fl Gran % 73.3 H (36.0-66.0) % Eos # (Auto) 0.24 (0-0.5) Absolute Lymphs (auto) 1.62 (1.0-4.6) Absolute Monos (auto) 0.62 (0.0-1.3) Lymphocytes % 17.2 L (24.0-44.0) % Monocytes % 6.6 (0.0-12.0) % Eosinophils % 2.6 (0.00-5.0) % Basophils % 0.3 (0.0-0.4) % Absolute Granulocytes 6.89 (1.4-6.9) Basophils # 0.03 (0-0.4) PT (8.83-12.87) SECONDS INR (0.8-3.0) APTT (24.1-36.1) SECONDS Sodium (137-145) mmol/L Potassium (3.5-5.1) mmol/L Chloride (98-107) mmol/L Carbon Dioxide (22-30) mmol/L Anion Gap (5-15) MEQ/L BUN (9-20) mg/dL Creatinine (0.66-1.25) mg/dL Estimated GFR ML/MIN Glucose (74-106) mg/dL Calcium (8.4-10.2) mg/dL Total Bilirubin (0.2-1.3) mg/dL AST (17-59) U/L ALT (0-50) U/L Alkaline Phosphatase (38-126) U/L Serum Total Protein (6.3-8.2) g/dL Albumin (3.5-5.0) g/dL Urine Color (YELLOW) Urine Appearance (CLEAR) Urine pH (5-6) Ur Specific Hamler (1.005-1.025) Urine Protein (Negative) Urine Ketones (NEGATIVE) Urine Blood (0-5) Macario/ul Urine Nitrite (NEGATIVE) Urine Bilirubin (NEGATIVE) Urine Urobilinogen (0-1) mg/dL Ur Leukocyte Esterase (NEGATIVE) Urine WBC (Auto) (0-5) /HPF Urine RBC (Auto) (0-2) /HPF U Epithel Cells (Auto) (FEW) /HPF Urine Bacteria (Auto) (NEGATIVE) /HPF Urine Mucus (Auto) (NEGATIVE) /HPF Urine Culture Reflexed (NO) Urine Glucose (NEGATIVE) mg/dL - Progress Progress: improved, re-examined Progress Note: 06/03/19 20:47 Normal exam while in ED. Hx suggests TIA. Work-up normal. Discussed with Dr. Krause - start ASA 81 mg daily. K low due to diuretic, Rx 10 mEq daily. Discussed with Dr.: Pebbles (See notes. Recheck soon. Need cardiology records re: last echo.) Will see patient in: office Counseled pt/family regarding: lab results, diagnosis, need for follow-up, rad results - Departure Departure Disposition: Home Clinical Impression: TIA (transient ischemic attack) Condition: Stable Critical Care Time: No Referrals: CESAR KRAUSE MD [Primary Care Provider] - Instructions: Transient Ischemic Attack (DC) Additional Instructions: Take a baby aspirin (81 mg) daily, enteric coated, with food. You might need started on a medicine to reduce stomach acid. Start potassium Rx, Dr. Krause will recheck your potassium level, ask about checking your magnesium level as well. Make an appt. to see him in a week or so. Plan of Treatment: Per Dr. Krause - ASA 81 mg daily and recheck . Prescriptions: Potassium Chloride 10 Meq Tab* [Klor Con 10 MEQ] 10 meq PO DAILY #30 tab
[2019-06-03 13:12] LABS: BASOPHIL % 0.3 % (0.0-0.4); Basophil (Absolute #) 0.03 (0-0.4); Eosinophil % 2.6 % (0.00-5.0); Eosinophil (Absolute #) 0.24 (0-0.5); Granulocyte Absolute (ANC) 6.89 (1.4-6.9); Granulocytes % 73.3 % (36.0-66.0); Hematocrit 41.6 % (42-50); Hemoglobin 14.2 gm/dl (12.5-18.0); INR 1.12 (0.8-3.0); Lymphocyte (Absolute #) 1.62 (1.0-4.6); Lymphocytes % 17.2 % (24.0-44.0); Mean Cell Volume 95.2 fl (78-100); Mean Corpuscular Hemoglobin 32.5 pg (26-32); Mean Corpuscular Hgb Concent. 34.1 g/dl (32-36); Mean Platelet Volume 10.5 fl (6-9.5); Monocyte (Absolute #) 0.62 (0.0-1.3); Monocytes % 6.6 % (0.0-12.0); PROTIME 12.7 SECONDS (8.83-12.87); Platelet Count 184 K/mm3 (150-450); Red Blood Count 4.37 M/mm3 (4.1-5.6); Red Cell Distribution Width 13.5 % (11.5-14.0); White Blood Count 9.4 K/mm3 (4.0-10.5)
[2019-06-03 13:15] LABS: PTT 31.8 SECONDS (24.1-36.1)
[2019-06-03 13:17] LABS: ALBUMIN 4.5 g/dL (3.5-5.0); ANION GAP 17.5 MEQ/L (5-15); BILIRUBIN,TOTAL 0.9 mg/dL (0.2-1.3); Calcium 10.4 mg/dL (8.4-10.2); Creatinine 1 1.29 mg/dL (0.66-1.25); Potassium 3.3 mmol/L (3.5-5.1); Total Protein 7.9 g/dL (6.3-8.2)
[2019-06-03 13:35] LABS: Appearance CLEAR (CLEAR); Bilirubin NEGATIVE (NEGATIVE); Blood NEGATIVE Ery/ul (0-5); Glucose NEGATIVE (NEGATIVE); Ketones NEGATIVE (NEGATIVE); Leukocyte Esterase NEGATIVE (NEGATIVE); Mucus SLIGHT /HPF (NEGATIVE); Nitrite NEGATIVE (NEGATIVE); Protein,Urine Dip NEGATIVE (Negative); Specific Gravity 1.011 (1.005-1.025); Urobilinogen NEGATIVE mg/dL (0-1)
--- NOTE | 2019-06-03 14:06 | XRAY ---
Exam: CT of the head without IV contrast from 06/03/2019. CTDI: 67.22 mGy Comparison: CT of the head without IV contrast from 10/05/2018. Indication: 73-year-old male with TIA. The patient describes what felt "like a panic attack" this morning. He had a tight feeling in his head with trouble recalling information, history of anxiety/depression, history of prior heart surgery, no known injury. Technique: Non-IV contrast axial images were obtained through the brain. Reconstructed coronal and sagittal images were created and reviewed. Findings: The ventricles are mildly prominent without hydrocephalus. Occasional prominence of the cortical sulci and sylvian fissures is seen. These findings reflect an aging brain/mild volume loss. This is stable. No focal mass effect or midline shift is seen. No acute intracranial bleed or abnormal extra-axial fluid collection is seen. I see no positive MCA sign suggest an acute stroke. Structures of the posterior fossa appear unremarkable. There are only subtle bilateral periventricular and subcortical white matter changes seen, likely due to mild chronic degenerative microischemia. Again, this is stable. No low attenuation territorial infarct or focal edema is seen. I again see complete opacification of the right frontal sinus. The left frontal sinus is diminutive in size. There is extensive soft tissue density and mucosal thickening within the ethmoid sinuses, particularly posteriorly, stable. A small air-fluid level persists within the right maxillary sinus. The prior small air-fluid level within left maxillary sinus has resolved. A minimal amount of fluid density is seen within the posterior right side of the sphenoid sinus representing no change. There is no fracture of the calvarium of the skull. No other focal bone lesion is seen. The mastoid air cells are well aerated without effusion. The orbits appear grossly unremarkable. Impression: 1. No acute intracranial bleed or other acute intracranial process is seen. 2. Minimal bilateral periventricular and subcortical white matter changes, likely reflecting minor degenerative microischemia. Aging brain. This is stable. 3. Incidental pansinusitis is again seen. The findings appear similar, except prior small air-fluid level within the left maxillary sinus is no longer seen. Small air-fluid levels within the posterior right maxillary sinus and posterior right side of the sphenoid sinus remain unchanged. Extensive opacification within the ethmoid sinuses is again seen.
[2019-06-03] MEDS ORDERED: Klor Con 10 MEQ PO ONE ×2 (14:34→14:45)
--- NOTE | 2019-06-03 14:43 | XRAY ---
Exam: Duplex Doppler carotid ultrasound examination from 06/03/2019. Comparison: Duplex Doppler carotid ultrasound examination from 05/08/2018. Indication: TIA. Technique: Longitudinal and transverse grayscale images were obtained as well as longitudinal color flow images. Doppler tracings were obtained throughout both carotid arteries with peak systolic flow velocities measured in centimeters per second. Findings: On the right side, there is minimal intimal thickening within the common carotid artery. Mild calcific plaque is seen about the posterior medial margin of the carotid bulb and posterior aspect of the proximal internal carotid artery. The right internal carotid artery appears tortuous in its course. Peak systolic flow velocities in centimeters per second measure 78 within the common carotid artery, 99 within the external carotid artery, 28 within the proximal internal carotid artery, and 75 within the distal internal carotid artery. Peak systolic flow velocity ratio between the right internal carotid artery and common carotid artery measures 1.0. There is antegrade flow within the right vertebral artery with a peak systolic flow velocity of 37 cm/s. On the left side, I also note minimal intimal thickening within the common carotid artery and carotid bulb. No significant calcific plaque is seen on this side. The left internal carotid artery appears tortuous in its course. Peak systolic flow velocities in centimeters per second measure 89 within the common carotid artery, 75 within the external carotid artery, 42 with the proximal internal carotid artery, and 95 within the distal internal carotid artery. Peak systolic flow velocity ratio between the left ICA and CCA measures 1.1 which is not significantly elevated. The left vertebral artery reveals antegrade flow with a peak systolic flow velocity of 48 cm/s. Impression: 1. Both internal carotid arteries are again noted to be tortuous in their course. Some mild calcific plaque is seen about the right carotid bulb and origin of the right internal carotid artery representing no change. However, the peak systolic flow velocities do not suggest a hemodynamically significant stenosis of 50% or greater diameter reduction within either carotid artery. This is unchanged from 05/08/2018. 2. Both vertebral arteries are identified and reveal antegrade flow.
[2019-06-03 14:53] VITALS: BP 142/80; PULSE 64; O2SAT 99
== END 2019-06-03 15:25 | disposition home or self-care (01) ==
LOC: ED 12:25
DX: G45.9 Transient cerebral ischemic attack, unspecified (principal)
CPT/HCPCS: 36415; 70450; 80053; 81001; 85025; 85610; 85730; 93880; 99284; A9270-GY

== ENCOUNTER 2019-08-12 10:33 | Emergency (ER) | payer MEDICARE, OTHER ==
[2019-08-12] MEDS ORDERED: TORAdol 30 mg Injection IV ONE (11:02)
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
[2019-08-12] MEDS ORDERED: TORAdol 30 mg Injection ONE (11:05)
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
[2019-08-12] MEDS ORDERED: BENADRYL 50 MG/ML IV ONE (11:44)
[2019-08-12] MEDS ORDERED: MORPHINE SULFATE 4 MG INJ IV ONE (11:44)
[2019-08-12] MEDS ORDERED: BENADRYL 50 MG/ML ONE (11:53)
[2019-08-12] MEDS ORDERED: MORPHINE SULFATE 4 MG INJ ONE (11:54)
[2019-08-12 12:01] LABS: Appearance CLEAR (CLEAR); Bilirubin NEGATIVE (NEGATIVE); Blood NEGATIVE Ery/ul (0-5); Glucose NEGATIVE (NEGATIVE); Ketones NEGATIVE (NEGATIVE); Leukocyte Esterase NEGATIVE (NEGATIVE); Nitrite NEGATIVE (NEGATIVE); Protein,Urine Dip NEGATIVE (Negative); Specific Gravity 1.009 (1.005-1.025); Urobilinogen NEGATIVE mg/dL (0-1)
[2019-08-12 12:08] VITALS: BP 135/86; PULSE 64
[2019-08-12 12:18] VITALS: O2SAT 100
== END 2019-08-12 12:24 | disposition home or self-care (01) ==
LOC: ED 10:33
DX: R07.89 Other chest pain (principal); S80.02XA Contusion of left knee, initial encounter; J84.10 Pulmonary fibrosis, unspecified; I10 Essential (primary) hypertension; V87.7XXA Person injured in collision between other specified motor vehicles (traffic), initial encounter
CPT/HCPCS: 36000; 71250; 73562; 81001; 96374; 96375; 99285; J1200; J1885; J2270

== ENCOUNTER 2024-07-25 11:52 | Day surgery (SDC) | payer MEDICARE, OTHER ==
[2024-07-25] MEDS ORDERED: Depo-Medrol 40 MG/ML IM ONE (11:53)
[2024-07-25] MEDS ORDERED: Xylocaine-Mpf 2% 5 Ml Vial IJ ONE (11:53)
[2024-07-25] MEDS ORDERED: DIPRIVAN 200 MG/20 ML IV ONE (13:30)
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
== END 2024-07-25 13:47 | disposition home or self-care (01) ==
LOC: SDC-PAIN 11:52
PROVIDERS: ATTEND Psychiatry & Neurology Pain Medicine
DX: M47.816 Spondylosis without myelopathy or radiculopathy, lumbar region (principal)
CPT/HCPCS: 64493; 64494; 72020; 77002; J2704